=== PATIENT | male | born 1995 | race Caucasian/White ===

== ENCOUNTER 2021-09-12 08:39 | Emergency (ER) | payer OTHER ==
[~2021-09-12] VITALS: Ht 182.9 cm; Wt 133.8 kg
[2021-09-12 09:00] LABS: BASOPHIL 0.7 % (0-2); EOSINOPHIL 1.7 % (0-5); HCT 45.8 % (42.0-52.0); HGB 15.3 g/dl (13.2-18.0); LYMPHOCYTE 37.4 % (15-48); MCH 28.5 pg (25.0-31.0); MCHC 33.4 g/dL (32.0-36.0); MCV 85.3 fL (78.0-100.0); MONOCYTE 10.1 % (0-12); MPV 10.7 fL (6.0-9.5); NEUTROPHIL 49.6 % (41-80); NRBC 0; PLT 207 K/uL (150-400); RBC 5.37 M/uL (4.70-6.00); RDW 12.7 % (11.5-14.0)
[2021-09-12] MEDS ORDERED: OMEPRAZOLE40 MG PO (09:15)
[2021-09-12 09:21] LABS: ALBUMIN 3.6 g/dL (3.4-5.0); BILIRUBIN - TOTAL 0.4 mg/dL (0.2-1.0); BUN/CREAT RATIO (CALC) 17.2 RATIO; CREATININE 0.87 mg/dL (0.67-1.17); GLOBULIN (CALCULATION) 4.4 g/dL; POTASSIUM 3.8 mmol/L (3.5-5.1)
[2021-09-12 10:07] LABS: CORONAVIRUS 2019 SARS-COV-2 NEGATIVE (NEGATIVE); INFLUENZA A NAA NEGATIVE (NEGATIVE)
== END 2021-09-12 10:06 | disposition home or self-care (01) ==
LOC: FER 08:39
PROVIDERS: Internal Medicine
DX: R07.89 Other chest pain (principal); R73.9 Hyperglycemia, unspecified; Z20.822 Contact with and (suspected) exposure to COVID-19
CPT/HCPCS: 36415; 71045; 80053; 83690; 84145; 84484; 85025; 93005; U0002

== ENCOUNTER 2021-09-17 10:56 | Emergency (ER) | payer OTHER ==
[~2021-09-17 10:56] MED LIST: OMEPRAZOLE40 MG PO
[2021-09-17 13:04] LABS: BASOPHIL 0.9 % (0-2); EOSINOPHIL 1.8 % (0-5); HCT 44.5 % (42.0-52.0); HGB 15.2 g/dl (13.2-18.0); LYMPHOCYTE 32.5 % (15-48); MCH 28.5 pg (25.0-31.0); MCHC 34.2 g/dL (32.0-36.0); MCV 83.3 fL (78.0-100.0); MONOCYTE 8.5 % (0-12); MPV 10.7 fL (6.0-9.5); NRBC 0; PLT 231 K/uL (150-400); RBC 5.34 M/uL (4.70-6.00); RDW 12.8 % (11.5-14.0); WBC 6.5 K/uL (4.0-10.5)
[2021-09-17 13:23] LABS: BUN/CREAT RATIO (CALC) 12.5 RATIO; CREATININE 0.96 mg/dL (0.67-1.17)
[2021-09-17] MEDS ORDERED: BACITRACIN15 GM TOP (13:52)
[2021-09-17] MEDS ORDERED: NAPROXEN500 MG PO (13:52)
== END 2021-09-17 14:25 | disposition home or self-care (01) ==
LOC: FER 10:56
PROVIDERS: Nurse Practitioner Family
DX: T22.511A Corrosion of first degree of right forearm, initial encounter (principal); T23.561A Corrosion of first degree of back of right hand, initial encounter; Z23 Encounter for immunization; X08.8XXA Exposure to other specified smoke, fire and flames, initial encounter; Y92.89 Other specified places as the place of occurrence of the external cause; Y99.0 Civilian activity done for income or pay
CPT/HCPCS: 36415; 80048; 85025; 90471; 90715; 99283